=== PATIENT | female | born 1965 | race Caucasian/White ===

== ENCOUNTER → 2023-10-05 16:27 | Outpatient (REF) | payer BC, SELFPAY | LOC: HWWDC 16:27 | PROVIDERS: ATTENDING PHYSICIAN Family Medicine | DX: Z12.31 Encounter for screening mammogram for malignant neoplasm of breast (principal) | CPT/HCPCS: 77063; 77067 ==

== ENCOUNTER → 2023-10-23 07:37 | Outpatient (REF) | payer BC, SELFPAY | LOC: HWRAD 07:37 | PROVIDERS: ATTENDING PHYSICIAN Family Medicine | DX: N93.9 Abnormal uterine and vaginal bleeding, unspecified (principal); Z78.0 Asymptomatic menopausal state | CPT/HCPCS: 76830; 76856 ==

== ENCOUNTER → 2023-11-27 11:13 | Outpatient (REF) | payer BC, SELFPAY | LOC: RAD 11:13 | PROVIDERS: ATTENDING PHYSICIAN Nurse Practitioner Adult Health; FAMILY PHYSICIAN Family Medicine | DX: N95.0 Postmenopausal bleeding (principal); N84.0 Polyp of corpus uteri | CPT/HCPCS: 58340; 76830; 76831 ==

== ENCOUNTER → 2024-01-12 08:45 | Outpatient (REF) | payer BC, SELFPAY | LOC: CLAB 08:45 | PROVIDERS: ATTENDING PHYSICIAN Obstetrics & Gynecology Gynecology | DX: N95.0 Postmenopausal bleeding (principal); N84.0 Polyp of corpus uteri | CPT/HCPCS: 88305 ==

== ENCOUNTER → 2024-10-22 07:14 | Outpatient (REF) | payer BC, SELFPAY | LOC: HWWDC 07:14 | PROVIDERS: ATTENDING PHYSICIAN Family Medicine | DX: Z12.31 Encounter for screening mammogram for malignant neoplasm of breast (principal) | CPT/HCPCS: 77063; 77067 ==